=== PATIENT | male | born 1995 | race Caucasian/White ===

== ENCOUNTER 2024-09-08 07:24 | Outpatient (CLI) | payer OTHER, SELFPAY | END 2024-09-08 07:25 | disposition home or self-care (01) | LOC: NFLDREF 09-10 14:55 | PROVIDERS: PCP Internal Medicine; Referring Provider Internal Medicine; Visit Provider Internal Medicine | DX: E78.5 Hyperlipidemia, unspecified (principal) | CPT/HCPCS: 80053; 80061 ==

== ENCOUNTER 2024-10-06 10:15 | Outpatient (CLI) | payer OTHER, SELFPAY | END 2024-10-06 10:16 | disposition home or self-care (01) | LOC: NFLDREF 10-07 03:06 | PROVIDERS: PCP Internal Medicine; Referring Provider Internal Medicine; Visit Provider Otolaryngology | DX: Z13.0 Encounter for screening for diseases of the blood and blood-forming organs and certain disorders involving the immune mechanism (principal); G25.81 Restless legs syndrome | CPT/HCPCS: 82728 ==

== ENCOUNTER 2024-10-14 10:43 | Outpatient (CLI) | payer OTHER, SELFPAY ==
--- NOTE | 2024-10-26 11:46 | W.PM.SLEEP ---
Sleep Study Details Details Interpreting Provider: Romeo Date of Sleep Study: 10/14/24 Sleep Study Details: STUDY TYPE:? Home unattended ? BMI:? 42.67 ORDERING PROVIDER:? Rayray INDICATION:? Concerned about sleep apnea ? SLEEP SUMMARY:? 404 minutes monitored RESPIRATORY SUMMARY:? AHI 7.3 per rule 1A, 4.0 per CMS guideline Low oxygen 86 3.4% of study oxygen less than 90% Snoring 98% PERIODIC LIMB MOVEMENTS OF SLEEP:? Not recorded CARDIAC:? Range 46-105, mean 64.8 IMPRESSION:? Mild obstructive sleep apnea per rule 1A, within normal limits per CMS guideline RECOMMENDATION: Utilizing rule 1A treatment options would be CPAP, dental appliance and/or weight loss. Is CMS guidelines apply and sleep disorder is strongly suspected would recommend we repeat study with sedative hypnotic agent or in-lab study.
== END 2024-10-14 10:44 | disposition home or self-care (01) ==
LOC: SLEEP 10:44
PROVIDERS: PCP Internal Medicine; Visit Provider Internal Medicine
DX: G47.33 Obstructive sleep apnea (adult) (pediatric) (principal)
CPT/HCPCS: 95806